=== PATIENT | male | born 1985 | race Caucasian/White ===

== ENCOUNTER 2017-07-30 16:00 | Emergency (ER) | payer OTHER ==
[~2017-07-30] VITALS: Ht 182.9 cm; Wt 95.5 kg
[2017-07-30 16:22] VITALS: BP 149/98; PULSE 108; RESP 12; O2SAT 98
[2017-07-30] MEDS ORDERED: oxyCODONE-Acetamin 10-325 mg Tablet PO ONE (16:40)
--- NOTE | 2017-07-30 17:35 | DRSVH ---
PROCEDURE: X-RAY FINGERS, TWO VIEWS RIGHT INDICATIONS: thumb trauma TECHNIQUE: AP hand, 2 views of the right first finger(s) acquired. COMPARISON: None. FINDINGS: Bones: No fractures or dislocations. No suspicious bony lesions. Soft tissues: No suspicious soft tissue calcifications. IMPRESSION: No acute radiographic findings. If pain persists, repeat study in 5-7 days is recommende d to exclude occult fracture. Dictated by: Eliana Mcneill M.D. on 07/30/2017 at 17:33 Approved by: Eliana Mcneill M.D. on 07/30/2017 at 17:34
--- NOTE | 2017-07-30 17:51 | ED.REPORT ---
HPI-Hand Prob/Inj Date of Service Jul 30, 2017 ED Provider: Abdulaziz Lynn DO Moss is an otherwise healthy 32-year-old male who presents to the ED with a crushing thumb injury. 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 Patient is right-handed. He denies loss of sensation in the finger. He is still able to move his thumb. Nursing Notes Stated Complaint: PARTIAL AMPUTATION Chief Complaint: Extremity Trauma Allergies: Coded Allergies: Penicillins (Verified Allergy, Intermediate, vomiting, 07/30/17) Scheduled Sulfamethoxazole/Trimeth 800-160 mg (Bactrim DS 800-160 mg) 1 Each Tablet 1 TABLET PO BID Scheduled PRN Hydrocodone-Acetaminophen 5-325 mg (Hydrocodone-Acetaminophen 5-325 mg) 1 Each Tablet 1 TABLET PO Q4H PRN PRN For Pain Ibuprofen (Ibuprofen) 800 Mg Tablet 800 MG PO TID PRN PRN For Pain General Time Seen by Provider: 17:00 Chief Complaint Finger injury right Right thumb. Hx Obtained From: Patient Arrived By: Walk-in Onset Occurred: 5 - 8 hours ago Context of Onset: Workplace Symptom Duration: Constant Caused by: Crushing injury Location: Right Hand: : Volar surface (tip of right thumb) Pertinent Negative: Pt denies other symptoms Immunizations: All up to date Past Medical History Past Medical History Asthma Past Surgical History Right eye surgery Smoking History Current Every Day Smoker Social History Alcohol Use: "Social" Ambulatory Status Independent Review of Systems Basic Review of Systems Eyes: Vision NL, No discharge ENT: Hearing NL, No pain, No nasal congestion, No pharyngeal pain Respiratory: No shortness of breath, No cough, No wheeze Cardiovascular: No chest pain, No dyspnea on exertion, No orthopnea, No parox noct dyspnea, No palpitations GI: No abdominal pain, No anorexia, No nausea, No vomiting : No dysuria, No frequency Endocrine: No cold intolerance, No heat intolerance, No weight gain, No weight loss Allergy / Immune: No allergy Psychiatric: Normal thought content Constitutional: Denies: Chills, Fever Complete sys rev & neg: except as marked. Physical Exam Initial Vital Signs Vital Signs (First) Date Time Temp Pulse Resp B/P Pulse Ox O2 Delivery O2 Flow Rate FiO2 07/30/17 16:22 37.1 108 12 149/98 98 Room Air General/Constitutional: Well-developed, Well-nourished Head / Eyes: Atraumatic, Normocephalic, PERRL ENT: Mucous membranes moist, Conjunctiva normal, No scleral icterus Neck: Supple, Non-tender, Full range of motion Trauma / Burn / Environmental: Positive: Laceration Laceration to the right thumb with displacement of the nailbed. Procedures Laceration Management Laceration Management: The laceration was examined in a bloodless field. There was no evidence of tendon injury, arthroscopy, or foreign body. Time: 18:00 Procedure Performed by: ED resident (Jemma John PGY1) Consent / Setup / Site Prep: Consent from patient, Time-out performed, Hand hygiene observed Location of Wound: Right thumb Local Anesthesia: Lidocaine 1% Digital Block: Yes Digit Involved: Thumb right Wound Preparation: Betadine, Normal saline Debridement: None Irrigation: Copious Foreign Body Explore / Removal: Explored for foreign body Undermining / Margins: Wound margins revised, Flaps aligned Repair Skin: ___ O (4), Vicryl # Sutures - Skin: 6 Closure Layers: 1 Post-Procedure / Complications: Antibiotic oint applied, Dressing applied, No complications, Condition improved, Tolerated procedure well, Patient stable Re-Eval/Medical Decision Med Decision/Clinical Course Ajay is a 32-year-old male who suffered crushing injury to his right thumb at work. Repeat x-rays of his hand did not show signs of fracture. We will revise his laceration and refer him to orthopedics follow-up. Discharge & Departure Primary Impression: Laceration Disposition: Home Discharge Condition All VS Reviewed: Yes Condition: Stable Patient Instructions: Acute Wound Care (ED) Additional Instructions: Keep your wound dry and clean. We are also prescribing you antibiotics. Follow up with an hand surgeon within the next week. Referrals: NOPCP (PCP) Attending Statement The patient was seen and examined together with Dr. John on 07/30/17 and I agree with the history, exam and plan as outlined in the note above. Jemma John DO Jul 30, 2017 17:51 OAbdulaziz Greene DO Jul 30, 2017 18:46
[2017-07-30] MEDS ORDERED: LORazepam 1 mg Tablet PO ONE (18:05)
[2017-07-30] MEDS ORDERED: SULF1TAB35 PO (18:52)
[2017-07-30] MEDS ORDERED: HYDR-4003 PO (18:52)
[2017-07-30] MEDS ORDERED: IBUP800T28 PO (18:52)
== END 2017-07-30 19:00 | disposition home or self-care (01) ==
LOC: SED 16:00
DX: S61.111A Laceration without foreign body of right thumb with damage to nail, initial encounter (principal); S67.01XA Crushing injury of right thumb, initial encounter; W23.0XXA Caught, crushed, jammed, or pinched between moving objects, initial encounter; Y93.89 Activity, other specified; Y99.0 Civilian activity done for income or pay; Y92.69 Other specified industrial and construction area as the place of occurrence of the external cause; F17.200 Nicotine dependence, unspecified, uncomplicated; J45.909 Unspecified asthma, uncomplicated; Z88.0 Allergy status to penicillin